=== PATIENT | male | born 1935 | race Caucasian/White ===

== ENCOUNTER 2020-07-31 13:23 | Inpatient (IN) | payer MEDICARE, SELFPAY ==
[~2020-07-31] VITALS: Ht 177.8 cm; Wt 74.8 kg
[2020-07-31] VITALS (7 sets, daily range): BP systolic 130–185
[2020-07-31] MEDS ORDERED: ASPIRIN 81 MG TAB.CHEW PO ONE (14:00)
[2020-07-31] MEDS ORDERED: IOHEXOL 350 mgI/mL, 150 ML INFUS..BTL IV ONE (14:50)
[2020-07-31 14:55] LABS: INR 1.3 (0.80-1.20); PROTHROMBIN TIME 12.9 SECS (9.5-12.5)
[2020-07-31 15:06] LABS: ALANINE AMINOTRANSFERASE 201 U/L (12-78); ALBUMIN 3.2 g/dL (3.4-4.8); C-REACTIVE PROTEIN QUANT 7.7 mg/dL (0-0.5); LACTATE DEHYDROGENASE 802 U/L (85-227)
[2020-07-31 15:13] LABS: MEAN CORPUSCULAR HEMOGLOBIN 32 pg (27-31); MEAN CORPUSCULAR HGB CONC 33 % (32-36); MEAN CORPUSCULAR VOLUME 98 fL (79.0-98.0)
[2020-07-31] MEDS ORDERED: DILTIAZEM HCL 25 MG/5 ML VIAL IVP ONE ×2 (15:15→16:00)
[2020-07-31 15:20] LABS: ANION GAP 23 (5-15); CHLORIDE 96 mmol/L (98-107); GLUCOSE 173 mg/dL (70-99); SODIUM SERUM 134 mmol/L (136-145); UREA NITROGEN, BLOOD 39 mg/dL (8-21)
[2020-07-31 15:21] LABS: HEMATOCRIT 48.3 % (36-54); HEMOGLOBIN 15.9 g/dL (14.0-18.0); PLATELET COUNT (AUTO) 53 K/uL (130-430); RED BLOOD CELL COUNT(AUTO) 4.92 MIL/uL (4.2-6.2); RED CELL DISTRIBUTION WIDTH 14.6 % (9.0-15.0); WHITE BLOOD COUNT (AUTO) 8.6 K/uL (4.8-10.8)
[2020-07-31 15:24] LABS: BAND % (MANUAL) 1 % (0-6); BASOPHILS % (MANUAL) 0 % (0-2); EOSINOPHILS % (MANUAL) 0 % (0-7); LYMPHOCYTES % (MANUAL) 6 % (20-46); METAMYELOCYTES % 2 % (0-0); MONOCYTES % (MANUAL) 5 % (0-11)
[2020-07-31 15:26] LABS: ASPARTATE AMINOTRANSFERASE 326 U/L (10-37)
[2020-07-31] MEDS ORDERED: MAGNESIUM SULFATE 1 GM/2 ML VIAL IVP ONE (15:30)
[2020-07-31] MEDS ORDERED: DILTIAZEM HCL 60 MG TABLET PO ONE (15:45)
[2020-07-31] MEDS ORDERED: NACL 0.9% 1,000 ML IV ONE (15:45)
[2020-07-31] MEDS ORDERED: cefTRIAXone 2 GM VIAL ONE (16:54)
[2020-07-31] MEDS ORDERED: KCL 20 mEq in 0.45% NS 1000 mL 1,000 ML IV SCH (17:45)
[2020-07-31] MEDS ORDERED: DILTIAZEM HCL 125 MG/25 ML VIAL IV ONE (19:06)
[2020-07-31] MEDS ORDERED: LevALBUTEROL HCL 1.25 MG/0.5 ML *CONC.* VIAL.NEB (XOPENEX CONC.) INH PRN (19:45)
[2020-07-31] MEDS ORDERED: ACETAMINOPHEN 325 MG TABLET PO PRN (19:45)
[2020-07-31] MEDS: METOPROLOL TARTRATE 50 MG TABLET PO SCH (20:21)
[2020-07-31] MEDS: 0.45% NACL 1,000 ML IV SCH (20:21)
[2020-07-31] MEDS: APIXABAN 2.5 MG TABLET PO SCH (20:25)
[2020-07-31] MEDS ORDERED: PIPERACILLIN/TAZOBACTAM 3.375 GM/VIAL (ZOSYN) IV ONE (22:29)
[2020-07-31] MEDS: INSULIN REGULAR, HUMAN 100 UNITS/ML, 10 ML VIAL (humuLIN R) SUBCUT PRN (22:30)
[2020-07-31] MEDS: LevALBUTEROL HCL 1.25 MG/0.5 ML *CONC.* VIAL.NEB (XOPENEX CONC.) INH SCH (23:38)
[2020-08-01] VITALS (24 sets, daily range): BP systolic 97–185
[2020-08-01] MEDS: PIPERACILLIN/TAZO 3.375/DEX-IS 50 ML IV SCH ×2 (00:36→06:09)
[2020-08-01 05:40] LABS: BASOPHILS % (AUTO) 0.5 % (0.0-2.0); EOSINOPHILS % (AUTO) 0.2 % (0.0-4.0); HEMATOCRIT 45.3 % (36-54); HEMOGLOBIN 14.8 g/dL (14.0-18.0); LYMPHOCYTES # (AUTO) 0.8 K/uL (1.0-5.5); LYMPHOCYTES % (AUTO) 7.6 % (20.5-51.5); MEAN CORPUSCULAR HEMOGLOBIN 32 pg (27-31); MEAN CORPUSCULAR HGB CONC 33 % (32-36); MEAN CORPUSCULAR VOLUME 98 fL (79.0-98.0); MONOCYTES # (AUTO) 0.8 K/uL (0.0-1.0); MONOCYTES % (AUTO) 7.6 % (1.7-9.3); NEUTROPHILS # (AUTO) 8.4 K/uL (1.8-7.7); NEUTROPHILS % (AUTO) 84.1 % (40.0-70.0); RED CELL DISTRIBUTION WIDTH 14.7 % (9.0-15.0); WHITE BLOOD COUNT (AUTO) 9.9 K/uL (4.8-10.8)
[2020-08-01 05:51] LABS: ANION GAP 22 (5-15); CALCIUM 9.3 mg/dL (8.4-11.0); CHLORIDE 98 mmol/L (98-107); CREATININE 3.38 mg/dL (0.55-1.30); GLUCOSE 170 mg/dL (70-99); POTASSIUM 5.7 mmol/L (3.5-5.1); SODIUM SERUM 135 mmol/L (136-145); UREA NITROGEN, BLOOD 53 mg/dL (8-21)
[2020-08-01 05:52] LABS: PLATELET COUNT (AUTO) 41 K/uL (130-430)
[2020-08-01] MEDS: INSULIN REGULAR, HUMAN 100 UNITS/ML, 10 ML VIAL (humuLIN R) SUBCUT PRN ×3 (06:35→17:48)
[2020-08-01] MEDS: LevALBUTEROL HCL 1.25 MG/0.5 ML *CONC.* VIAL.NEB (XOPENEX CONC.) INH SCH ×2 (07:18→15:50)
[2020-08-01] MEDS: METOPROLOL TARTRATE 50 MG TABLET PO SCH ×2 (08:45→21:00)
[2020-08-01] MEDS: 0.45% NACL 1,000 ML IV SCH (08:46)
[2020-08-01] MEDS: APIXABAN 2.5 MG TABLET PO SCH ×2 (09:00→21:00)
[2020-08-01] MEDS ORDERED: SITA1TBM PO (10:00)
[2020-08-01] MEDS ORDERED: NACL 0.9% 2,000 ML IV ONE (10:15)
[2020-08-01] MEDS ORDERED: AMIODARONE HCL 200 MG TABLET PO ONE (10:15)
[2020-08-01] MEDS ORDERED: SODIUM POLYSTYRENE SULFONATE 15 GM/60 ML UDBTL PO ONE (10:15)
[2020-08-01] MEDS: NACL 0.9% 1,000 ML IV SCH ×2 (10:21→21:03)
[2020-08-01 11:25] LABS: BILIRUBIN,DIRECT 3.1 mg/dL (0.0-0.3); TOTAL BILIRUBIN 4.3 mg/dL (0.0-1.0)
[2020-08-01] MEDS ORDERED: AZITHROMYCIN 500 MG in NS 250 ML IV SCH (11:30)
[2020-08-01 13:03] LABS: CKMB RELATIVE INDEX 0.8 (0.0-2.9); CREATINE KINASE MB 10.1 ng/mL (0-3.6)
[2020-08-01] MEDS: AMIODARONE HCL 200 MG TABLET PO SCH ×2 (13:04→21:09)
[2020-08-01 13:10] LABS: C-REACTIVE PROTEIN QUANT 8.4 mg/dL (0-0.5)
[2020-08-01 15:51] LABS: ASPARTATE AMINOTRANSFERASE 3120 U/L (10-37)
[2020-08-01 15:55] LABS: ALANINE AMINOTRANSFERASE 1313 U/L (12-78)
[2020-08-01] MEDS ORDERED: FUROSEMIDE 20 MG/2 ML VIAL IVP ONE (18:30)
[2020-08-01 19:24] LABS: CKMB RELATIVE INDEX 1.1 (0.0-2.9); CREATINE KINASE MB 13.1 ng/mL (0-3.6)
[2020-08-01] MEDS ORDERED: AMIODARONE HCL 450 MG in D5W 241 ML IV SCH ×2 (20:45→23:00)
[2020-08-01] MEDS: MEROPENEM 500 MG in NS 50 ML IV SCH (21:04)
[2020-08-01] MEDS: FAMOTIDINE PF 20 MG/2 ML VIAL IVP SCH (21:30)
[2020-08-01] MEDS ORDERED: AMIODARONE HCL 450 MG/9 ML VIAL IV ONE ×2 (23:39→23:40)
[2020-08-01] MEDS ORDERED: SODIUM BICARBONATE 8.4% JECT 50 MEQ/50 ML SYRINGE ONE (23:45)
[2020-08-02] VITALS (12 sets, daily range): BP systolic 82–118
[2020-08-02] MEDS ORDERED: SODIUM BICARBONATE 8.4% JECT 50 MEQ/50 ML SYRINGE IVP ONE ×3 (00:30→08:45)
[2020-08-02] MEDS ORDERED: ALBUMIN HUMAN 25% 100 ML IV ONE ×2 (02:15→02:38)
[2020-08-02] MEDS ORDERED: NS 500 ML IV ONE (03:30)
[2020-08-02 04:09] LABS: CKMB RELATIVE INDEX 1.4 (0.0-2.9); CREATINE KINASE MB 21.8 ng/mL (0-3.6)
[2020-08-02 06:23] LABS: BASOPHILS % (AUTO) 0.4 % (0.0-2.0); EOSINOPHILS # (AUTO) 0.2 K/uL (0.0-0.4); EOSINOPHILS % (AUTO) 2.5 % (0.0-4.0); HEMATOCRIT 37.5 % (36-54); HEMOGLOBIN 11.6 g/dL (14.0-18.0); LYMPHOCYTES # (AUTO) 0.8 K/uL (1.0-5.5); LYMPHOCYTES % (AUTO) 9.1 % (20.5-51.5); MEAN CORPUSCULAR HEMOGLOBIN 33 pg (27-31); MEAN CORPUSCULAR HGB CONC 31 % (32-36); MEAN CORPUSCULAR VOLUME 107 fL (79.0-98.0); MONOCYTES # (AUTO) 0.3 K/uL (0.0-1.0); MONOCYTES % (AUTO) 3.7 % (1.7-9.3); NEUTROPHILS # (AUTO) 7.4 K/uL (1.8-7.7); NEUTROPHILS % (AUTO) 84.3 % (40.0-70.0); RED BLOOD CELL COUNT(AUTO) 3.51 MIL/uL (4.2-6.2); WHITE BLOOD COUNT (AUTO) 8.8 K/uL (4.8-10.8)
[2020-08-02] MEDS ORDERED: DEXTROSE 50% JECT 50 ML DISP.SYRIN ONE (06:59)
[2020-08-02] MEDS ORDERED: D5W 1,000 ML IV PRN (07:17)
[2020-08-02] MEDS: LevALBUTEROL HCL 1.25 MG/0.5 ML *CONC.* VIAL.NEB (XOPENEX CONC.) INH SCH (07:17)
[2020-08-02] MEDS ORDERED: GLUCOSE 15 GM GEL (in 37.5 GM TUBE) PO PRN (07:30)
[2020-08-02] MEDS ORDERED: DEXTROSE 50% JECT 50 ML DISP.SYRIN IVP PRN (07:30)
[2020-08-02] MEDS ORDERED: ATROPINE SULFATE 1 MG/10 ML SYRINGE IVP ONE (07:48)
[2020-08-02] MEDS ORDERED: DOPamine PREMIX 250 ML IV PRN (08:00)
[2020-08-02] MEDS: APIXABAN 2.5 MG TABLET PO SCH (08:05)
[2020-08-02] MEDS: FAMOTIDINE PF 20 MG/2 ML VIAL IVP SCH (08:05)
[2020-08-02] MEDS: METOPROLOL TARTRATE 50 MG TABLET PO SCH (08:05)
[2020-08-02] MEDS ORDERED: SODIUM BICARBONATE 8.4% VIAL 50 MEQ/50 ML VIAL ONE (08:41)
[2020-08-02 08:58] LABS: BASOPHILS % (AUTO) 0.6 % (0.0-2.0); EOSINOPHILS # (AUTO) 0.1 K/uL (0.0-0.4); EOSINOPHILS % (AUTO) 1.4 % (0.0-4.0); HEMATOCRIT 33.4 % (36-54); HEMOGLOBIN 9.9 g/dL (14.0-18.0); LYMPHOCYTES # (AUTO) 1.1 K/uL (1.0-5.5); LYMPHOCYTES % (AUTO) 13.2 % (20.5-51.5); MEAN CORPUSCULAR HEMOGLOBIN 33 pg (27-31); MEAN CORPUSCULAR HGB CONC 30 % (32-36); MEAN CORPUSCULAR VOLUME 111 fL (79.0-98.0); MONOCYTES # (AUTO) 0.3 K/uL (0.0-1.0); NEUTROPHILS # (AUTO) 7.1 K/uL (1.8-7.7); NEUTROPHILS % (AUTO) 81.8 % (40.0-70.0); RED BLOOD CELL COUNT(AUTO) 3.01 MIL/uL (4.2-6.2); RED CELL DISTRIBUTION WIDTH 17.6 % (9.0-15.0); WHITE BLOOD COUNT (AUTO) 8.6 K/uL (4.8-10.8)
[2020-08-02] MEDS ORDERED: SODIUM BICARBONATE 8.4% JECT 100 MEQ in 0.45% NACL 1,000 ML IV SCH (09:00)
[2020-08-02 09:07] LABS: PLATELET COUNT (AUTO) 26 K/uL (130-430)
[2020-08-02 09:08] LABS: PLATELET COUNT (AUTO) 39 K/uL (130-430)
[2020-08-02 09:09] LABS: INR 2.2 (0.80-1.20); PROTHROMBIN TIME 22.6 SECS (9.5-12.5)
[2020-08-02 09:13] LABS: ANION GAP 29 (5-15); CALCIUM 9.2 mg/dL (8.4-11.0); CHLORIDE 104 mmol/L (98-107); CREATININE 5.56 mg/dL (0.55-1.30); GLUCOSE 173 mg/dL (70-99); SODIUM SERUM 142 mmol/L (136-145); UREA NITROGEN, BLOOD 69 mg/dL (8-21)
[2020-08-02] MEDS: MEROPENEM 500 MG in NS 50 ML IV SCH (09:24)
[2020-08-02 09:26] LABS: ALBUMIN 2.4 g/dL (3.4-4.8)
[2020-08-02 09:40] LABS: SODIUM SERUM 139 mmol/L (136-145)
[2020-08-02 09:52] LABS: CHLORIDE 100 mmol/L (98-107); POTASSIUM 5.9 mmol/L (3.5-5.1)
[2020-08-02 09:53] LABS: ANION GAP 31 (5-15); CALCIUM 8.7 mg/dL (8.4-11.0); CREATININE 5.18 mg/dL (0.55-1.30); GLUCOSE 80 mg/dL (70-99); TOTAL BILIRUBIN 4.4 mg/dL (0.0-1.0); UREA NITROGEN, BLOOD 66 mg/dL (8-21)
[2020-08-02 09:54] LABS: ALANINE AMINOTRANSFERASE 1642 U/L (12-78); ALBUMIN 2.9 g/dL (3.4-4.8); ASPARTATE AMINOTRANSFERASE 4546 U/L (10-37); CHOLESTEROL 131 mg/dL (<200); HDL CHOLESTEROL 15 mg/dL (>45); LDL CHOLESTEROL 57 mg/dL (<100); TRIGLYCERIDES 364 mg/dL (30-150)
[2020-08-02 09:55] LABS: THYROID STIMULATING HORMONE 1.93 uIu/mL (0.34-4.82)
[2020-08-02 09:57] LABS: PHOSPHORUS 12.1 mg/dL (2.7-4.5)
[2020-08-02 11:45] LABS: POTASSIUM 7.7 mmol/L (3.5-5.1)
[2020-08-02 11:46] LABS: TOTAL BILIRUBIN 3.8 mg/dL (0.0-1.0)
[2020-08-02 11:47] LABS: ALANINE AMINOTRANSFERASE 1788 U/L (12-78); ASPARTATE AMINOTRANSFERASE 5427 U/L (10-37)
== END 2020-08-02 09:53 | disposition expired | DRG 871 ==
LOC: SED 13:23 → SIC 17:42
PROVIDERS: ADMIT Family Medicine; ATTEND Family Medicine
PROC: 5A09357 Assistance with Respiratory Ventilation, Less than 24 Consecutive Hours, Continuous Positive Airway Pressure (ICD-10-PCS; 2020-08-01)
PROC: 5A12012 Performance of Cardiac Output, Single, Manual (ICD-10-PCS; principal; 2020-08-02)
PROC: 0BH17EZ Insertion of Endotracheal Airway into Trachea, Via Natural or Artificial Opening (ICD-10-PCS; 2020-08-02)
PROC: 5A1935Z Respiratory Ventilation, Less than 24 Consecutive Hours (ICD-10-PCS; 2020-08-02)
DX: A41.9 Sepsis, unspecified organism (principal); J96.00 Acute respiratory failure, unspecified whether with hypoxia or hypercapnia; R65.21 Severe sepsis with septic shock; N17.9 Acute kidney failure, unspecified; D68.9 Coagulation defect, unspecified; E87.2 Acidosis; I10 Essential (primary) hypertension; M19.90 Unspecified osteoarthritis, unspecified site; E11.9 Type 2 diabetes mellitus without complications; I95.9 Hypotension, unspecified; Z89.421 Acquired absence of other right toe(s); I48.91 Unspecified atrial fibrillation; D69.6 Thrombocytopenia, unspecified; K52.9 Noninfective gastroenteritis and colitis, unspecified; E86.0 Dehydration; I46.9 Cardiac arrest, cause unspecified; K74.60 Unspecified cirrhosis of liver; Z20.828 Contact with and (suspected) exposure to other viral communicable diseases
CPT/HCPCS: 36415; 36600; 71045; 71275; 80048; 80053; 80061; 80076; 82550-TC; 82553-TC; 82728; 82803-TC; 82962; 83605; 83615-TC; 83735-TC; 83880; 84100-TC; 84443-TC; 84484; 85007; 85025; 85027; 85379; 85384-TC; 85610-TC; 85651-TC; 85730-TC; 86140; 86738; 86886; 86900; 86901; 87040-TC; 87081; 93005; 93306; 94002; 94640; 94660; 96365; 96367; 96375; 96376; 99285; C1751; J0456; J0461; J0696; J1815; J1940; J2185; J2543; J3475; J3480; J3490; J7030; J7040; J7050; J7060; J7612; P9046; Q9967; U0003-CS